=== PATIENT | female | born 1975 | race Two or more races ===

== ENCOUNTER 2025-07-28 19:55 | Emergency (ER) | payer MEDICAID, SELFPAY ==
[2025-07-28 20:34] VITALS: BP 102/66; PULSE 73; RESP 20; TEMP 37.4; O2SAT 98; BMI 29.4
--- NOTE | 2025-07-28 20:39 | XR_ITS ---
Examination: CT abdomen and pelvis without contrast. Coronal 3-D reconstructions. Sagittal 2-D reconstructions. Date and time of exam: July 28, 2025, 2145 hours INDICATIONS: Onset abdominal pain today CTDI: vol (mGy): 9.91 DLP: (mGycm): 518 Technique: Axial images of the abdomen have been obtained, 3 mm slice thickness Intravenous contrast material has not been administered. Low dose protocols were performed. One or more of the following dose reduction techniques were used; automated exposure control, adjustment of the mA and/or KV according to patient size, use of iterative reconstruction technique. Findings: No visualized liver or splenic lesion No gallstones No pancreatic mass No renal or ureteral calculi, no hydronephrosis Aorta normal size No bowel obstruction Normal appendix No diverticulitis No pelvic mass Mild thickening urinary bladder wall Advanced disc narrowing L5-S1 IMPRESSION: No renal or ureteral calculi, no hydronephrosis Normal appendix No bowel obstruction diverticulitis or free air. Mild thickening of the urinary bladder wall, consider cystitis
--- NOTE | 2025-07-28 20:40 | PD.EDRME ---
Rapid Medical Screening Exam E Arrival date/time: 07/28/25 19:55 This is a case of 50-year-old female with history of cholecystectomy came in in the emergency room just to generalized abdominal pain for 4 days associated with nausea vomiting worsening of the symptoms this patient decided to sought consult in the emergency room Chief Complaint: Abdominal Pain Time Seen by Provider: 07/28/25 20:28 Vital signs: Vital Signs Temperature 99.4 F 07/28/25 20:34 Pulse Rate 73 07/28/25 20:34 Respiratory Rate 20 07/28/25 20:34 Blood Pressure 102/66 07/28/25 20:34 Pulse Oximetry (%) 98 07/28/25 20:34 Oxygen Delivery Method Room Air 07/28/25 20:34 Exam: Moderate tenderness on epigastric area no guarding no rebound no rigidity no CVA tenderness Clinical Impression: Abdominal pain
[2025-07-28 21:10] LABS: Basophils # (Auto) 0.1 Thou/mm3 (0.0-0.2); Basophils % (Auto) 0 % (0-2.5); Eosinophils # (Auto) 0.2 Thou/mm3 (0.0-0.5); Eosinophils % (Auto) 2 % (0-10); Hematocrit 34.8 % (36.0-46.0); Hemoglobin 11.9 g/dL (12.0-16.0); Immature Granulocytes Auto 0.06 Thou/mm3 (0.00-0.00); Lymphocytes # (Auto) 2.3 Thou/mm3 (1.0-4.8); Lymphocytes % (Auto) 18 % (10-50); Mean Corpuscular HGB Conc 34.2 g/dl (31.0-37.0); Mean Corpuscular Hemoglobin 31.5 pg (25.0-35.0); Mean Corpuscular Volume 92 fL (80-100); Monocytes # (Auto) 0.9 Thou/mm3 (0.0-0.8); Monocytes % (Auto) 7 % (0-12); Neutrophils # (Auto) 9.6 Thou/mm3 (1.8-7.7); Neutrophils % (Auto) 73 % (37-80); Nucleated Red Blood Cell # 0.00 Thou/mm3 (0.00-0.00); Nucleated Red Blood Cell % 0 /100 WBC (0); Platelet Count 329 Thou/mm3 (140-440); RDW Standard Deviation 41.6 fL (36.4-46.3); Red Blood Count 3.78 Miln/mm3 (4.00-5.20); White Blood Count 13.2 Thou/mm3 (3.6-11.0)
[2025-07-28 21:17] LABS: Collection Type, Urine Clean Catch
[2025-07-28 21:21] LABS: HCG Qualitative,Urine Negative
[2025-07-28 21:27] LABS: Amorphous Crystals,Urine Present (Absent); Bacteria,Urine Rare; Bilirubin,Urine Negative (Negative); Blood,Urine Trace (Negative); Clarity,Urine Turbid (Clear/Hazy); Color,Urine Lt-Yellow (Lt Yel-Yel); Glucose, Urine Negative (Negative); Hyaline Casts,Urine < 1 /hpf (0-1); Ketones,Urine Negative (Negative); Leukocyte Esterase,Urine Positive (Negative); Nitrite,Urine Negative (Negative); PH,Urine 8.0 (5.0-7.0); Protein,Urine Trace (Neg - Trace); RBC,Urine 15 /hpf (0-3); Specific Gravity,Urine 1.011 (1.001-1.035); Squamous Epithelial Cell,Urine 13 /hpf (0-5); Urobilinogen,Urine Negative mg/dL (0.0-1.0); WBC,Urine 117 /hpf (0-5)
[2025-07-28 21:31] LABS: Alanine Aminotransferase 20 U/L (10-49); Albumin, Serum 4.8 gm/dL (3.5-5.0); Albumin/Globulin Ratio 1.5 (1.2-2.2); Alkaline Phosphatase 75 U/L (46-116); Anion Gap 9 (7-16); Aspartate Amino Transferase 14 U/L (0-34); BUN/Creatinine Ratio 11 Ratio (12-20); Bilirubin,Total 0.5 mg/dL (0.3-1.2); Blood Urea Nitrogen 10 mg/dL (9-23); Calcium 9.7 mg/dL (8.3-10.6); Calcium (Corrected) 9.7 mg/dL (8.5-10.1); Carbon Dioxide 29.9 mMol/L (20.0-31.0); Chloride 103 mMol/L (98-107); Creatinine (Component) 0.9 mg/dL (0.6-1.3); Estimated Creatinine Clearance 74.3 mL/min (>60); Globulin 3.2 gm/dL (2.3-3.5); Glucose 108 mg/dL (74-106); Lipase 32 U/L (12-53); Osmolality,Calculated 283 (275-295); Potassium 3.8 mMol/L (3.4-5.1); Sodium 142 mMol/L (136-145); Total Protein 8.0 gm/dL (5.7-8.2); eGFR > 60 See Note
[2025-07-28 22:27] VITALS: BP 114/57; PULSE 68; RESP 17; TEMP 37.7; O2SAT 97
--- NOTE | 2025-07-28 23:04 | EDNOTE_ITS ---
ED Abdominal Pain RME/HPI General Chief Complaint: Abdominal Pain Stated complaint: ABD PAIN Time seen by provider: 07/28/25 20:28 Arrival date/time: 07/28/25 19:55 RME / HPI RME / HPI narrative: 07/28/25 19:55 This is a case of 50-year-old female with history of cholecystectomy came in in the emergency room just to generalized abdominal pain for 4 days associated with nausea vomiting worsening of the symptoms this patient decided to sought consult in the emergency room Dr. Fong?s Main ED Evaluation: 50 y/o female presents with generalized abdominal pain that radiates to the back, decreased appetite, and bloating x 2 days. Denies nausea, vomiting, and diarrhea. Patient reports exacerbation of pain when consuming spicy food. Reports SHx of and Cholecystectomy. Exam: Moderate tenderness on epigastric area no guarding no rebound no rigidity no CVA tenderness Impression: Abdominal pain Related Data Previous Rx's ?Medication ?Instructions ?Recorded aluminum-mag hydroxide-simethicone 15 ml PO QID PRN dy spepsia #3,000 07/28/25 200 mg-200 mg-20 mg/5 mL oral susp mL (Maalox Advanced) famotidine 20 mg tablet (Pepcid) 20 mg PO BID 10 days #20 tabs 07/28/25 sucralfate 1 gram tablet (Carafate) 1 g PO BID 10 days #20 tabs 07/28/25 Allergies Allergy/AdvReac Type Severity Reaction Status Date / Time No Known Allergies Allergy Verified 07/28/25 19:56 Review of Systems Review of Systems Systems Reviewed: All systems reviewed, normal except as documented Past Medical History Surgical History SURGICAL: Positive Section and Hx Cholecystectomy ED Exam Narrative Physical exam: GENERAL APPEARANCE: alert and oriented x 4, well-developed, well-nourished, no acute distress VITALS: All vitals were reviewed and the pulse ox is 97% on room air, which is normal according to my interpretation. HEENT: Normocephalic, atraumatic; pupils equal, round, reactive to light; EOMI; mucous membranes pink, moist; oropharynx clear NECK: Supple LUNGS: CTABL; no wheezes, no rales, no rhonchi HEART: Regular rate, regular rhythm; normal S1, S2; no murmurs ABDOMEN: non distended; normal BS; soft, no tenderness, no guarding, no rebound; no masses, no organomegaly, no hernia BACK: no CVA tenderness EXTREMITIES: atraumatic; no edema NEUROLOGIC: awake; alert and oriented x4; cranial nerves II-XII grossly intact; no focal sensory or motor deficits PSYCHIATRIC: appropriate mood and affect SKIN: warm, dry, normal color; no rashes Course Quality Measures none Orders Category Date Time Status CT abdomen pelvis wo con Stat Exams 07/28/25 20:39 Completed CBC Stat Lab 07/28/25 20:52 Completed Comprehensive Metabolic Panel Stat Lab 07/28/25 20:52 Completed HCG Qualitative,Urine Stat Lab 07/28/25 21:07 Completed Lipase Stat Lab 07/28/25 20:52 Completed Urinalysis Stat Lab 07/28/25 21:07 Completed Famotidine [Pepcid] Med 07/28/25 23:02 Discontinued 20 mg PO X1 ONE mg Hyd/Al Hyd/Ariel Susp [Maalox Susp] Med 07/28/25 23:02 Discontinued 30 ml PO X1 ONE Vital Signs Vital signs: Vital Signs Temperature 99.4 F 07/28/25 20:34 Pulse Rate 73 07/28/25 20:34 Respiratory Rate 20 07/28/25 20:34 Blood Pressure 102/66 07/28/25 20:34 Pulse Oximetry (%) 98 07/28/25 20:34 Oxygen Delivery Method Room Air 07/28/25 20:34 Abdominal Pain MDM MDM Narrative MDM Narrative:: Patient is a 50-year-old female who presented to the emergency department with complaints of epigastric pain. Patient arrived with normal vital signs which remained stable throughout her visit. Her exam revealed minimal if any epigastric tenderness to palpation. There is no right upper or right lower quadrant tenderness to even deep palpation. Patient states symptoms are worse when she lies flat or after she eats spicy foods. I believe she has GERD or potentially gastritis. I went ahead and treated her here with Pepcid and Maalox and the patient improved. I have written prescriptions for her and she is to follow-up with her primary care doctor. I gave her strict return instructions as well Scribe Attestation: I, Heather Houston, am scribing for and in the presence of Dr. Fong. Provider Notation: Although this document has been carefully reviewed, there may still be some phonetic and other typographical errors. These errors are purely grammatical due to imperfections in the software program and should not be construed in any way to compromise the substance of the patient's medical care during this visit. Patient data External records reviewed:: [facility] previous records (No prior ED records available for review) Clinical information provided by:: patient Social determinants that could affect healthcare access:: none Patient has the following chronic illnesses:: None reported How is presenting disease/condition affected by chronic disease/condition?: no chronic disease Evaluation data The following diagnostics were reviewed and interpreted by me:: lab results and radiology exam(s) Lab and/or radiology exams considered but not ordered:: None Interpretation Summary: RADIOLOGY Abdomen/Pelvis CT: Findings: No visualized liver or splenic lesion No gallstones No pancreatic mass No renal or ureteral calculi, no hydronephrosis Aorta normal size No bowel obstruction Normal appendix No diverticulitis No pelvic mass Mild thickening urinary bladder wall Advanced disc narrowing L5-S1 IMPRESSION: No renal or ureteral calculi, no hydronephrosis Normal appendix No bowel obstruction diverticulitis or free air. Mild thickening of the urinary bladder wall, consider cystitis Medications / Prescriptions Medications or Prescriptions considered but not ordered:: None Medication administrations:: Medication Administration History Discontinued Medications Al Hydrox/Mg Hydrox/Simethicone (Mg Hyd/Al Hyd/Ariel (Maalox Reg) Susp 30 Ml Udc) 30 ml PO X1 ONE Stop: 07/28/25 23:03 Last Admin: 07/28/25 23:10 Dose: 30 ml Documented By: VALDO Famotidine (Famotidine 20 Mg Tablet) 20 mg PO X1 ONE Stop: 07/28/25 23:03 Last Admin: 07/28/25 23:10 Dose: 20 mg Documented By: VALDO See above if any Consultations Consultation(s) initiated? (list below): No Diagnosis Differential diagnosis abdominal pain: abdominal pain, calculus of kidney, constipation, pancreatitis and other (GERD, Gastritis, Ulcer) Most likely diagnosis given after review of the tests above:: See clinical impression below Admission Indicated Admission indicated?: not indicated Explain why admission is indicated or not indicated:: Patient has no emergent abnormalities in their studies and can be managed on an outpatient basis Admission Request Was there a request for admission?: No Disposition Plan Disposition Plan: Discharge Discharge Attestation Discharge Attestation: The patient and all family members were given an opportunity to ask questions and understood the discharge instructions. Discharge instructions specifically effects, indications for sooner follow up or return to the emergency department, and the expected course of current diagnosis. Patient condition: Stable Discharge Plan Plan Patient Disposition: HOME (Self Care) Discharge Disposition comment: Stable for discharge home Patient condition on transfer: Stable Prescriptions/Referrals Prescriptions/Med Rec: New famotidine [Pepcid] 20 mg tablet 20 mg PO BID 10 Days Qty: 20 0RF alum-mag hydroxide-simeth [Maalox Advanced] 200-200-20 mg/5 mL suspension 15 ml PO QID PRN (Reason: dyspepsia) Qty: 3000 0RF Rx Instructions: administer between meals and at bedtime sucralfate [Carafate] 1 gram tablet 1 g PO BID 10 Days Qty: 20 0RF Referrals: [facility] [Provider Group] - In 1 week Problem List Clinical Impression: Acute epigastric pain Patient/Caregiver Discharge Instructions Discharge Activity: activity as tolerated Diet Instructions: Please limit spicy foods Education Materials: ED GERD (Adult), ED Epigastric Pain (Uncertain Cause) Additional Instructions: Please return to the emergency department if you have any worsening or any further medical problems we will help you. Otherwise you should follow-up with your primary care doctor or in the family health care clinic within the next several days. I have called in 3 medications at your pharmacy. You should go and pick them up at your earliest convenience. Please take these and all medications as directed. Print Language: Malagasy Stand Alone Forms: [employer] Award Info., Patient Portal Info Letter
[2025-07-28] MEDS: MG HYD/AL HYD/SIME (Maalox Reg) SUSP 30 ML UDC PO (23:10)
[2025-07-28] MEDS: FAMOTIDINE 20 MG TABLET PO (23:10)
[2025-07-28 23:13] VITALS: BP 114/57; PULSE 68; RESP 17; TEMP 37.6; O2SAT 97
== END 2025-07-28 23:12 | disposition home or self-care (01) ==
PROVIDERS: Nurse Practitioner Family; Emergency Provider Emergency Medicine
DX: R10.13 Epigastric pain (principal); N32.89 Other specified disorders of bladder
CPT/HCPCS: 36415; 74176; 80053; 81001; 81025; 83690; 85025; 99283; A9270